=== PATIENT | male | born 1975 | race Hispanic/Latino ===

== ENCOUNTER 2020-11-04 08:20 | Day surgery (SDC) | payer SELFPAY ==
[2020-11-04] MEDS ORDERED: Ringers Lactate 1,000 ML IV ONE ×2 (08:43→12:04)
[2020-11-04] MEDS ORDERED: CEFAZOLIN/SWI 1gm 1 GM/10 ML SYR ONE (08:43)
[2020-11-04] MEDS ORDERED: NS 0.9% VIAL 10 ML ONE (08:57)
[2020-11-04] MEDS ORDERED: LIDOCAINE 2% MPF 5 ML VIAL ONE ×2 (08:57→10:01)
[2020-11-04] MEDS ORDERED: dexAMETHasone 10 MG/ML VIAL ONE (08:58)
[2020-11-04] MEDS ORDERED: ROPLVACAINE HCL 40 ML ONE (08:58)
[2020-11-04] MEDS ORDERED: MIDAZOLAM HCL 2 MG/2 ML INJ ONE (08:58)
[2020-11-04] MEDS ORDERED: FENTANYL CITR 100 MCG/2 ML ONE (08:58)
[2020-11-04] MEDS ORDERED: propofoL 200 MG/20 ML VIAL IV ONE (10:01)
[2020-11-04] MEDS: HYDROMORPHONE HCL 1 MG/ML INJ ONE ×2 (10:44→11:49)
[2020-11-04 11:50] VITALS: O2SAT 98
[2020-11-04 12:24] VITALS: BP 124/75; TEMP 96.4
[2020-11-04] MEDS ORDERED: CODEINE 30MG/APAP 300MG TAB ONE (12:25)
--- NOTE | 2020-11-04 12:59 | RAD REPORT ---
EXAM DESCRIPTION: RAD - Finger-Thumb Right - 11/04/2020 12:41 pm FINDINGS: There were 5 portable C-arm views submitted during fluoroscopic assisted right second digi t distal phalanx fracture repair. No suspicious or unexpected finding Fluoro time was 0.1 minutes. Cumulative dose was 0.0618 mGy.
--- NOTE | 2020-11-05 15:02 | OP ---
Surgeon: Alexx Farnsworth MD Preoperative Diagnosis: Open fracture of the right middle finger distal phalanx and middle phalanx. Postoperative Diagnosis: Open fracture of the right middle finger distal phalanx and middle phalanx. Procedure Performed: Debridement of skin, subcutaneous tissue, and bone; nail bed repair of index and middle; simple closure of 8 cm wound; and fusion of the distal interphalangeal; and open reduction and internal fixation of the distal phalanx; and splint. Anesthesia: General. Procedure In Detail: After satisfactory induction of general anesthesia, the right hand was prepped with Betadine scrub, Betadine paint, dry sterile drapes applied in usual manner. The arm was elevated, exsanguinated with an Esmarch. Tourniquet was inflated to 250 mmHg. Hand was placed on the Roto Lock table. Periosteal elevator was used to remove the nail plate in the index and middle and the wounds were debrided of skin, subcutaneous tissue, then jet lavage irrigated with 3 L of dilute Betadine solution. The patient had a comminuted fracture of the distal phalanx and the patient underwent then wire fixation. A 28 K-wire was used to drill holes through the proximal portion of the distal phalanx and distal portion of the middle phalanx and 3 fragments were pulled together with a 20-gauge wire and then distally holes were made in the most distal piece with a 20-gauge wire with a wire and then a hole was placed proximally holes placed for proximal fixation for fusion of the joint. This was then twisted. This resulted in ORIF of the distal phalanx fracture and fusion of the DIP joint. The patient then had the nail bed debrided as needed and the nail bed was repaired with 5-0 PDS and then skin was closed with 4-0 Prolene simple sutures. The middle finger had a scalpel used to debride the skin edges and the nail bed, and this was repaired with Prolene and PDS. Dressings consisted of Xeroform, 2-inch Arely, and splint holding the PIP, DIP of the index finger. The patient tolerated the procedure well and returned to Recovery. GH/MODL Voice ID: [id number] Report ID: [id number]
== END 2020-11-04 13:05 | disposition home health service (06) ==
LOC: OR 08:20 → EDBD 10:00 → OR 13:05
PROVIDERS: ATTEND Specialist
PROC: 0PST04Z Reposition Right Finger Phalanx with Internal Fixation Device, Open Approach (ICD-10-PCS; 2020-11-04)
PROC: 0PST0ZZ Reposition Right Finger Phalanx, Open Approach (ICD-10-PCS; principal; 2020-11-04 10:00)
DX: S62.632B Displaced fracture of distal phalanx of right middle finger, initial encounter for open fracture (principal); U07.1 COVID-19
CPT/HCPCS: J0690; J1100; J1170; J2250; J2704; J2795; J3010; J7120; U0003